=== PATIENT | male | born 1935 | race Caucasian/White ===

== ENCOUNTER → 2017-03-31 | Outpatient (CLI) | payer MEDICARE, OTHER | END | disposition home or self-care (01) | LOC: CFH 08:06 | PROVIDERS: ATTEND Nurse Practitioner Family | DX: I08.3 Combined rheumatic disorders of mitral, aortic and tricuspid valves (principal) | CPT/HCPCS: 93306 ==

== ENCOUNTER 2017-04-13 13:52 | Inpatient (IN) | payer MEDICARE ==
[~2017-04-13] VITALS: Ht 162.6 cm; Wt 55.3 kg
[2017-04-13] MEDS ORDERED: SODIUM CHLORIDE 0.9% 1,000 ML IV ONE (14:02)
[2017-04-13] MEDS ORDERED: ACET-711 PO (14:10)
[2017-04-13] MEDS ORDERED: AMLO5TAB2 PO (14:10)
[2017-04-13] MEDS ORDERED: DORZ10DR3 OP (14:10)
[2017-04-13] MEDS ORDERED: LISI40TA PO (14:10)
[2017-04-13] MEDS ORDERED: DIAZ10TA4 PO (14:10)
[2017-04-13] MEDS ORDERED: METO-93 PO (14:10)
[2017-04-13] MEDS ORDERED: ACETAMINOPHEN 500 MG TABLET ONE (14:13)
[2017-04-13] MEDS ORDERED: SODIUM CHLORIDE 0.9% 1,000ML IVBOLUS ONE (14:30)
[2017-04-13] MEDS ORDERED: SODIUM CHLORIDE FLUSH 10ML SYR IVF ONE (14:30)
[2017-04-13] MEDS ORDERED: ACETAMINOPHEN 500 MG TABLET PO ONE (14:30)
[2017-04-13 14:37] LABS: RAPID INFLUENZA A Negative (Negative); RAPID INFLUENZA B Negative (Negative)
[2017-04-13 14:40] LABS: HEMATOCRIT 33.2 % (39.2-51.8); HEMOGLOBIN 11.3 g/dL (13.7-18.0); WHITE BLOOD COUNT 11.7 x10^3/uL (3.4-10)
[2017-04-13 14:50] LABS: ASPARTATE AMINO TRANSFERASE 30 U/L (15-37); BLOOD UREA NITROGEN 19 mg/dL (7-18)
[2017-04-13 14:56] LABS: IS PT STATUS REG ER OR PRE ER? YES
[2017-04-13] MEDS ORDERED: CEFTRIAXONE PMX 1GM/50ML 50 ML IV ONE (15:30)
[2017-04-13] MEDS ORDERED: AZITHROMYCIN 500 MG in SODIUM CHLORIDE 0.9% 250 ML IV ONE (15:30)
[2017-04-13] MEDS ORDERED: CEFTRIAXONE PMX 1GM/50ML 50 ML ONE (15:32)
[2017-04-13 15:47] LABS: PATH.CAST-FLAG NOT PRESENT; SPERM-FLAG NOT PRESENT; SRC-FLAG NOT PRESENT; XTAL-FLAG NOT PRESENT; YLC-FLAG NOT PRESENT
[2017-04-13] MEDS ORDERED: CEFTRIAXONE 500 MG in DEXTROSE 5% 50 ML IV SCH (17:00)
[2017-04-13] MEDS ORDERED: ENOXAPARIN 40 MG/0.4 ML SQ SCH (17:00)
[2017-04-13] MEDS ORDERED: HYDROcodone/APAP 5/325 TABLET PO PRN (17:00)
[2017-04-13] MEDS ORDERED: ONDANSETRON ODT 4 MG PO PRN (17:00)
[2017-04-13 17:25] VITALS: BP 143/76
[2017-04-13 19:44] VITALS: BP 163/81
[2017-04-13] MEDS: APAP/CODEINE 300/60MG TABLET PO SCH (21:00)
[2017-04-13] MEDS: DORZOLAMIDE OPHTH 2%, 10ML OP SCH (21:17)
[2017-04-13] MEDS: SODIUM CHLORIDE 0.9% 1,000 ML IV SCH (21:18)
[2017-04-13] MEDS: ENOXAPARIN 40 MG/0.4 ML SQ SCH (21:18)
[2017-04-14 02:02] VITALS: BP 103/58
[2017-04-14] MEDS: SODIUM CHLORIDE 0.9% 1,000 ML IV SCH ×2 (04:30→11:26)
[2017-04-14 04:34] VITALS: BP 110/51
[2017-04-14 05:04] LABS: HEMATOCRIT 30.1 % (39.2-51.8); HEMOGLOBIN 10.4 g/dL (13.7-18.0); WHITE BLOOD COUNT 13.6 x10^3/uL (3.4-10)
[2017-04-14 05:08] LABS: ASPARTATE AMINO TRANSFERASE 27 U/L (15-37); BLOOD UREA NITROGEN 19 mg/dL (7-18)
[2017-04-14 06:55] VITALS: BP 109/56
[2017-04-14 08:57] VITALS: BP 110/61
[2017-04-14] MEDS: METOPROLOL SUCCINATE 50 MG TAB.ER.24H PO SCH (09:00)
[2017-04-14] MEDS: DORZOLAMIDE OPHTH 2%, 10ML OP SCH ×2 (09:00→21:09)
[2017-04-14] MEDS: DIAZEPAM 10 MG TABLET PO SCH (09:00)
[2017-04-14] MEDS: AMLODIPINE 5 MG TABLET PO SCH (09:00)
[2017-04-14] MEDS: APAP/CODEINE 300/60MG TABLET PO SCH ×3 (09:00→21:00)
[2017-04-14] MEDS: LISINOPRIL 20 MG TABLET PO SCH (09:00)
[2017-04-14] MEDS: CEFTRIAXONE PMX 1GM/50ML 50 ML IV SCH (10:13)
[2017-04-14 14:45] VITALS: BP_SYST 124; BP_SYST 152; BP_DIAS 63; BP_DIAS 82
[2017-04-14] MEDS ORDERED: CEFTRIAXONE 500 MG in DEXTROSE 5% 50 ML IV SCH (18:00)
[2017-04-14 19:40] VITALS: BP 122/58
[2017-04-14] MEDS: ENOXAPARIN 40 MG/0.4 ML SQ SCH (21:13)
[2017-04-15 03:11] VITALS: BP 139/64
[2017-04-15 05:36] LABS: HEMATOCRIT 30.1 % (39.2-51.8); HEMOGLOBIN 10.4 g/dL (13.7-18.0); WHITE BLOOD COUNT 10.9 x10^3/uL (3.4-10)
[2017-04-15 05:46] LABS: BLOOD UREA NITROGEN 16 mg/dL (7-18)
[2017-04-15] MEDS: DIAZEPAM 10 MG TABLET PO SCH (09:00)
[2017-04-15] MEDS ORDERED: ERGOCALCIFEROL 50,000 UNIT CAPSULE PO SCH (09:30)
[2017-04-15] MEDS ORDERED: POTASSIUM CHLORIDE 40 MEQ in SODIUM CHLORIDE 0.9% 500 ML IV ONE (09:30)
[2017-04-15] MEDS: METOPROLOL SUCCINATE 50 MG TAB.ER.24H PO SCH (10:10)
[2017-04-15] MEDS: DORZOLAMIDE OPHTH 2%, 10ML OP SCH ×2 (10:10→20:37)
[2017-04-15] MEDS: AMLODIPINE 5 MG TABLET PO SCH (10:11)
[2017-04-15] MEDS: LISINOPRIL 20 MG TABLET PO SCH (10:11)
[2017-04-15] MEDS: APAP/CODEINE 300/60MG TABLET PO SCH ×3 (10:19→20:37)
[2017-04-15] MEDS: CEFTRIAXONE PMX 1GM/50ML 50 ML IV SCH (11:21)
[2017-04-15 13:09] VITALS: BP 128/63
[2017-04-15 19:30] VITALS: BP 122/62
[2017-04-15] MEDS: ENOXAPARIN 40 MG/0.4 ML SQ SCH (20:37)
[2017-04-16 02:00] VITALS: BP 147/71
[2017-04-16 05:23] LABS: HEMATOCRIT 30.3 % (39.2-51.8); HEMOGLOBIN 10.4 g/dL (13.7-18.0); WHITE BLOOD COUNT 7.1 x10^3/uL (3.4-10)
[2017-04-16 05:32] LABS: BLOOD UREA NITROGEN 15 mg/dL (7-18)
[2017-04-16] MEDS: APAP/CODEINE 300/60MG TABLET PO SCH ×3 (09:00→20:42)
[2017-04-16] MEDS: DIAZEPAM 10 MG TABLET PO SCH (09:00)
[2017-04-16] MEDS ORDERED: POLYETHYLENE GLYCOL 17 GM PACKET PO PRN (09:00)
[2017-04-16] MEDS: METOPROLOL SUCCINATE 50 MG TAB.ER.24H PO SCH (09:55)
[2017-04-16] MEDS: CEFTRIAXONE PMX 1GM/50ML 50 ML IV SCH (09:55)
[2017-04-16] MEDS: DORZOLAMIDE OPHTH 2%, 10ML OP SCH ×2 (09:55→20:43)
[2017-04-16] MEDS: LISINOPRIL 20 MG TABLET PO SCH (09:55)
[2017-04-16] MEDS: DOCUSATE 100 MG CAPSULE PO SCH ×2 (09:55→20:42)
[2017-04-16] MEDS: AMLODIPINE 5 MG TABLET PO SCH (09:55)
[2017-04-16 15:38] VITALS: BP 132/70
[2017-04-16 20:00] VITALS: BP 133/67
[2017-04-16] MEDS: ENOXAPARIN 40 MG/0.4 ML SQ SCH (20:43)
[2017-04-17 02:00] VITALS: BP 138/64
[2017-04-17 08:58] VITALS: BP 107/58
[2017-04-17] MEDS: DIAZEPAM 10 MG TABLET PO SCH (09:00)
[2017-04-17] MEDS: DORZOLAMIDE OPHTH 2%, 10ML OP SCH (09:56)
[2017-04-17] MEDS: AMLODIPINE 5 MG TABLET PO SCH (09:57)
[2017-04-17] MEDS: LISINOPRIL 20 MG TABLET PO SCH (09:57)
[2017-04-17] MEDS: METOPROLOL SUCCINATE 50 MG TAB.ER.24H PO SCH (09:57)
[2017-04-17] MEDS: DOCUSATE 100 MG CAPSULE PO SCH (09:59)
[2017-04-17] MEDS ORDERED: CEFTRIAXONE PMX 2GM/50ML 50 ML IV SCH (10:00)
[2017-04-17 10:01] VITALS: BP 119/64
[2017-04-17] MEDS: APAP/CODEINE 300/60MG TABLET PO SCH ×2 (10:32→16:14)
[2017-04-17 14:00] VITALS: BP 145/63
[2017-04-17] MEDS ORDERED: ERGO500017 PO (16:51)
[2017-04-17] MEDS ORDERED: CEFT1FRO2 IV (16:51)
== END 2017-04-17 17:39 | disposition home or self-care (01) | DRG 871 ==
LOC: ED 14:50 → 4NOR 16:59 → ED 18:41
PROVIDERS: ADMIT Internal Medicine; ATTEND Internal Medicine
PROC: 02HV33Z Insertion of Infusion Device into Superior Vena Cava, Percutaneous Approach (ICD-10-PCS; principal; 2017-04-17)
PROC: B548ZZA Ultrasonography of Superior Vena Cava, Guidance (ICD-10-PCS; 2017-04-17)
DX: A41.9 Sepsis, unspecified organism (principal); E43 Unspecified severe protein-calorie malnutrition; N17.9 Acute kidney failure, unspecified; J15.9 Unspecified bacterial pneumonia; E86.0 Dehydration; E87.1 Hypo-osmolality and hyponatremia; N30.90 Cystitis, unspecified without hematuria; Z68.20 Body mass index [BMI] 20.0-20.9, adult; I08.0 Rheumatic disorders of both mitral and aortic valves; E55.9 Vitamin D deficiency, unspecified; E87.6 Hypokalemia; I10 Essential (primary) hypertension; Z16.11 Resistance to penicillins; Z79.891 Long term (current) use of opiate analgesic; Z79.899 Other long term (current) drug therapy; Z85.46 Personal history of malignant neoplasm of prostate; Z87.891 Personal history of nicotine dependence
CPT/HCPCS: 36415; 36569; 71010; 76937; 77001; 80048; 80053; 81001; 82306; 82607; 83605; 83735; 84484; 85025; 87040; 87077; 87086; 87186; 87400; 93005; 96361; 96365; J0696; J1650; J3480; C1751; J7030; J7040

== ENCOUNTER 2020-02-04 10:57 | Day surgery (SDC) | payer OTHER, MEDICARE ==
[~2020-02-04] VITALS: Ht 167.6 cm; Wt 57.0 kg
[~2020-02-04 10:57] MED LIST: ACET-711 PO; AMLO-150 PO; CEFT1FRO2 IV; DIAZ10TA4 PO; DORZ10DR26 OP; ERGO500017 PO; LISI40TA PO; METO-93 PO
[2020-02-04] MEDS ORDERED: SODIUM CHLORIDE 0.9% 1,000 ML IV ONE (11:30)
[2020-02-04 11:40] VITALS: BP 139/69
[2020-02-04] MEDS ORDERED: BIMA2.5D EACHEYE (11:50)
[2020-02-04] MEDS ORDERED: CHLO25TA PO (11:50)
[2020-02-04] MEDS ORDERED: PLEASE ENTER HEIGHT AND WEIGHT MC SCH (12:00)
[2020-02-04] MEDS ORDERED: PROPOFOL 10 MG/ML, 20ML ONE (13:26)
== END 2020-02-04 15:13 | disposition home or self-care (01) ==
LOC: CACL 10:57
PROVIDERS: ATTEND Internal Medicine Cardiovascular Disease
DX: I34.0 Nonrheumatic mitral (valve) insufficiency (principal); I35.1 Nonrheumatic aortic (valve) insufficiency; R06.02 Shortness of breath; I07.1 Rheumatic tricuspid insufficiency; E11.9 Type 2 diabetes mellitus without complications; I10 Essential (primary) hypertension; F12.90 Cannabis use, unspecified, uncomplicated; Z20.828 Contact with and (suspected) exposure to other viral communicable diseases; Z79.899 Other long term (current) drug therapy; Z72.89 Other problems related to lifestyle; Z87.891 Personal history of nicotine dependence
CPT/HCPCS: 87635; 93312; 93321; 93325; J2704

== ENCOUNTER 2020-03-20 07:17 | Day surgery (SDC) | payer MEDICARE ==
[~2020-03-20 07:17] MED LIST changes: +BIMA2.5D EACHEYE; +CHLO25TA PO
[2020-03-20] MEDS ORDERED: SODIUM CHLORIDE 0.9% 1,000 ML IV SCH ×2 (07:30→12:00)
[2020-03-20 08:38] LABS: ANION GAP 8 mmol/L (5-15); CALCIUM 9.3 mg/dL (8.5-10.1); CHLORIDE 106 mmol/L (98-107)
[2020-03-20 08:40] LABS: CREATININE 1.14 mg/dL (0.7-1.3)
[2020-03-20 08:45] LABS: BASOPHILS % (AUTO) 0 % (0-1); EOSINOPHILS % (AUTO) 2 % (1-7); LYMPHOCYTES % (AUTO) 35 % (22-44); MEAN CORPUSCULAR HEMOGLOBIN 34.2 pg (27.5-34.5); MEAN CORPUSCULAR HGB CONC 33.7 g/dL (33.2-36.2); MONOCYTES % (AUTO) 9 % (2-9); NEUTROPHILS % (AUTO) 54 % (42-75); PLATELET COUNT 195 x10^3/uL (130-400); RED BLOOD COUNT 3.98 x10^6/uL (4.38-5.82); RED CELL DISTRIBUTION WIDTH 12.8 % (9.4-14.8)
[2020-03-20 08:46] LABS: MD NO
[2020-03-20] MEDS ORDERED: PLEASE ENTER HEIGHT AND WEIGHT MC SCH (12:00)
== END 2020-03-20 13:43 | disposition home or self-care (01) ==
LOC: CACL 07:17
PROVIDERS: ATTEND Internal Medicine Cardiovascular Disease
DX: I08.0 Rheumatic disorders of both mitral and aortic valves (principal); I25.10 Atherosclerotic heart disease of native coronary artery without angina pectoris; I10 Essential (primary) hypertension; E11.9 Type 2 diabetes mellitus without complications; Z79.899 Other long term (current) drug therapy
CPT/HCPCS: 36415; 80048; 85025; 93458; 99156; C1769; C1894; J1644; J2250; J3010; Q9967

== ENCOUNTER 2020-08-28 09:09 | Outpatient (CLI) | payer MEDICARE, OTHER ==
[~2020-08-28 09:09] MED LIST changes: +AMLO-211 PO; +ASPI81TA45 PO; +CITA20TA6 PO; +CLOP75TA PO; +HYDR-3237 PO; -LISI40TA PO; +LISI40TA9 PO; +OMEP20TA62 PO; +POTA-143 PO
== END 2020-08-28 23:59 | disposition home or self-care (01) ==
LOC: CVU 09:09
PROVIDERS: ATTEND Internal Medicine Cardiovascular Disease
DX: I08.8 Other rheumatic multiple valve diseases (principal); Z95.4 Presence of other heart-valve replacement
CPT/HCPCS: 93306; 93356

== ENCOUNTER 2020-09-14 14:47 | Outpatient (CLI) | payer MEDICARE ==
[~2020-09-14 14:47] MED LIST changes: -POTA-143 PO; +POTA20TA6 PO
== END 2020-09-14 23:59 | disposition home or self-care (01) ==
LOC: CVU 14:47
PROVIDERS: ATTEND Internal Medicine Cardiovascular Disease
DX: Z01.810 Encounter for preprocedural cardiovascular examination (principal); I08.3 Combined rheumatic disorders of mitral, aortic and tricuspid valves; R06.02 Shortness of breath; I65.29 Occlusion and stenosis of unspecified carotid artery
CPT/HCPCS: 93306